=== PATIENT | female | born 1995 | race Caucasian/White ===

== ENCOUNTER 2017-04-09 13:59 | Emergency (ER) | payer OTHER ==
[2017-04-09 15:00] VITALS: BP 112/61
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
[2017-04-09] MEDS ORDERED: MOTRIN PO ONE (16:10)
[2017-04-09 16:27] LABS: HCG Qualitative,Urine Negative (Negative)
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
== END 2017-04-09 18:35 | disposition home or self-care (01) ==
LOC: ED 13:59
DX: S39.012A Strain of muscle, fascia and tendon of lower back, initial encounter (principal); F17.200 Nicotine dependence, unspecified, uncomplicated; V43.52XA Car driver injured in collision with other type car in traffic accident, initial encounter; Y93.89 Activity, other specified; Y99.8 Other external cause status; Y92.410 Unspecified street and highway as the place of occurrence of the external cause
CPT/HCPCS: 72070; 72100; 81025; 99284

== ENCOUNTER 2018-03-22 15:49 | Emergency (ER) | payer OTHER ==
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
[2018-03-22 17:38] VITALS: BP 113/67
[2018-03-22] MEDS ORDERED: NORCO 5/325 PO STA (17:57)
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
--- NOTE | 2018-03-22 19:19 | XRay Report ---
FINAL REPORT EXAM: XR CHEST ROUTINE 2V HISTORY: PAIN TECHNIQUE: Two view chest PA and lateral PRIORS: Comparison is dated January 17, 2018 FINDINGS: Cardiac and mediastinal contours are unremarkable. No focal pulmonary infiltrate is identified. No pleural fluid collection seen. Pulmonary vasculature is unremarkable. IMPRESSION: Negative two-view chest
== END 2018-03-22 22:05 | disposition home or self-care (01) ==
LOC: ED 15:49
DX: R07.89 Other chest pain (principal); M79.10 Myalgia, unspecified site; F17.200 Nicotine dependence, unspecified, uncomplicated; V89.2XXA Person injured in unspecified motor-vehicle accident, traffic, initial encounter; Y93.89 Activity, other specified; Y92.488 Other paved roadways as the place of occurrence of the external cause; Y99.8 Other external cause status
CPT/HCPCS: 71046; 99283